=== PATIENT | female | born 1980 | race Two or more races ===

== ENCOUNTER 2018-03-19 11:27 | Emergency (ER) | payer OTHER | END 2018-03-19 12:20 | disposition home or self-care (01) | LOC: ER 11:27 | DX: H66.91 Otitis media, unspecified, right ear (principal); H93.11 Tinnitus, right ear; K21.9 Gastro-esophageal reflux disease without esophagitis; Z90.49 Acquired absence of other specified parts of digestive tract; Z90.89 Acquired absence of other organs; Z98.890 Other specified postprocedural states | CPT/HCPCS: 99283 ==

== ENCOUNTER 2018-04-15 12:05 | Emergency (ER) | payer OTHER ==
[~2018-04-15] VITALS: Ht 144.8 cm; Wt 93.4 kg
[~2018-04-15 12:05] MED LIST: AMOX875T PO; IBUP-1060 PO; PSEU120T58 PO
[2018-04-15 12:30] VITALS: BP 103/59
[2018-04-15] MEDS ORDERED: KETOROLAC 30 MG/ML VIAL. ONE (13:21)
[2018-04-15] MEDS ORDERED: KETOROLAC 60 MG/2 ML INJ. IM ONE (13:30)
[2018-04-15] MEDS ORDERED: KETOROLAC 30 MG/ML VIAL. IM ONE (13:30)
[2018-04-15] MEDS ORDERED: ORPHENADRINE CITRATE 60 MG/2 ML VIAL. IM ONE (13:30)
[2018-04-15] MEDS ORDERED: NAPR-514 PO (13:56)
[2018-04-15] MEDS ORDERED: ORPH100T PO (13:56)
--- NOTE | 2018-04-15 13:57 | PHYS DOC ---
Past Medical History Past Medical History: No Pertinent History, GERD Past Surgical History: Appendectomy, Cholecystectomy, , Other Additional Past Surgical Histo: Foot surgery Alcohol Use: None Drug Use: None Adult General Chief Complaint Chief Complaint: Neck Pain HPI HPI Patient is a 38 year old female who presents to emergency room with complaints of right neck pain that radiates into her shoulder and down her right arm for the last 4 days. She denies any known injury, weakness, or decreased range of motion. Currently she reports her HEENT is 8 out of 10 on the pain scale, she is taking ibuprofen for relief of her pain with little to no help. She reports her last menstrual period started approximately 2 days ago. She states that the pain shoots a tingling sensation down her right arm. Patient states she is not allergic to any medications she has no medical history, and her surgical history includes surgery on her left foot, right wrist, 2 C-sections, appendectomy, and cholecystectomy. He denies any numbness or weakness of her right upper extremity. Review of Systems Review of Systems Constitutional: Denies fever or chills [] Musculoskeletal: Denies back pain, reports pain in R side of neck to R shoulder and shooting pain down right arm. Integument: Denies rash or skin lesions [] Neurologic: Denies headache, or focal weakness; reports tingling shooting pain down right arm All other systems were reviewed and found to be within normal limits, except as documented in this note. Current Medications Current Medications Current Medications Medications (Trade) Dose Ordered Sig/[facility] Start Time Stop Time Status Last Admin Dose Admin Ketorolac Tromethamine (Toradol 30mg Vial) 30 mg 1X ONCE 04/15/18 13:30 04/15/18 13:31 DC Ketorolac Tromethamine (Toradol Im) 30 mg 1X ONCE 04/15/18 13:30 04/15/18 13:31 DC 04/15/18 13:27 30 MG Orphenadrine Citrate (Norflex) 60 mg 1X ONCE 04/15/18 13:30 04/15/18 13:31 DC 04/15/18 13:24 60 MG Allergies Allergies Allergies Coded Allergies Type Severity Reaction Last Updated Verified No Known Drug Allergies 04/15/18 No Physical Exam Physical Exam Constitutional: Well developed, well nourished, no acute distress, non-toxic appearance. [] HENT: Normocephalic, atraumatic, bilateral external ears normal, nose normal. [ ] Eyes: PERRLA, conjunctiva normal, no discharge. [] Neck: Normal range of motion, no body tenderness, supple, no stridor, chin to chest normal . [] Lungs & Thorax: Respirations even and unlabored Skin: Warm, dry, no erythema, no rash. [] Extremities: No tenderness, no cyanosis, no clubbing, ROM intact, no edema, equal grey stock recorder bilat. [] Neurologic: Alert and oriented X 3, normal motor function, normal sensory function, no focal deficits noted. [] Psychologic: Affect normal, judgement normal, mood normal. [] Current Patient Data Vital Signs Vital Signs Date Time Temp Pulse Resp B/P (MAP) Pulse Ox O2 Delivery O2 Flow Rate FiO2 04/15/18 12:30 98.2 82 18 103/59 (74) 99 Room Air 98.2 EKG EKG [] Radiology/Procedures Radiology/Procedures [] Course & Med Decision Making Course & Med Decision Making Pertinent Labs and Imaging studies reviewed. (See chart for details) Patient is a 38-year-old female who presented to the emergency room with complaints of right-sided neck pain issues and her right shoulder and since tingling sensation down her right arm for the last 3 days. Her vital signs are stable, she was given an IM injection of 30 mg of Toradol, and 60 mg of orphenadrine, patient reported relief of her symptoms after these medications. Her physical exam and patient history are consistent with a cervical neck strain with paresthesias and radiation to the right shoulder, treated as such. Patient will be given a prescription for orphenadrine and naproxen to take at home.Patient verbalized an understanding of home care, medications, follow-up, and return to ED instructions and was in agreement with the plan of care. [] Dragon Disclaimer Dragon Disclaimer This electronic medical record was generated, in whole or in part, using a voice recognition dictation system. Departure Departure Impression: Primary Impression: Right cervical radiculopathy Additional Impressions: Strain of cervical portion of right trapezius muscle Cervical strain, acute Disposition: 01 HOME, SELF-CARE Condition: IMPROVED Referrals: NO PCP (PCP) Patient Instructions: Cervical Sprain, [id number] Additional Instructions: Fill the Prescriptions and use them as directed, recommended application of heat or ice to sore areas as needed for comfort. Follow-up with your primary care doctor in 1-2 days. Return to the emergency room if her symptoms worsen. Scripts Orphenadrine Citrate (ORPHENADRINE CITRATE) 100 Mg Tablet.er 100 MG PO BID PRN for PAIN for 7 Days, #14 TAB.SR 0 Refills Prov: EDITH FRASER SENIOR UI DEVELOPER 04/15/18 Naproxen (NAPROXEN) 500 Mg Tablet 500 MG PO BID for 10 Days, #20 TAB 0 Refills Prov: EDITH FRASER APRN 04/15/18 Problem Qualifiers Additional Impressions: Cervical strain, acute Encounter type: initial encounter Qualified Codes: S16.1XXA - Strain of muscle, fascia and tendon at neck level, initial encounter EDITH FRASER SENIOR UI DEVELOPER Apr 15, 2018 13:57
== END 2018-04-15 14:12 | disposition home or self-care (01) ==
LOC: ER 12:05
DX: S16.1XXA Strain of muscle, fascia and tendon at neck level, initial encounter (principal); M54.12 Radiculopathy, cervical region; K21.9 Gastro-esophageal reflux disease without esophagitis; Z90.49 Acquired absence of other specified parts of digestive tract; X58.XXXA Exposure to other specified factors, initial encounter; Y93.89 Activity, other specified; Y92.89 Other specified places as the place of occurrence of the external cause; Y99.8 Other external cause status
CPT/HCPCS: 99284; J1885; J2360